=== PATIENT | female | born 1955 | race Caucasian/White ===

== ENCOUNTER 2018-08-21 11:04 | Outpatient (CLI) | payer OTHER ==
[~2018-08-21 11:04] MED LIST: CARB200T PO; METFORMIN
== END 2018-08-21 21:21 | disposition home or self-care (01) ==
LOC: SRD 11:04
PROVIDERS: ATTEND Family Medicine
DX: R05 Cough (principal); M47.814 Spondylosis without myelopathy or radiculopathy, thoracic region
CPT/HCPCS: 71046-TC

== ENCOUNTER 2019-04-30 12:45 | Outpatient (CLI) | payer OTHER | END 2019-04-30 20:57 | disposition home or self-care (01) | LOC: SMA 12:45 | PROVIDERS: ATTEND Family Medicine | DX: Z12.31 Encounter for screening mammogram for malignant neoplasm of breast (principal) | CPT/HCPCS: 77067 ==

== ENCOUNTER 2019-11-30 11:49 | Emergency (ER) | payer SELFPAY ==
[~2019-11-30] VITALS: Ht 152.4 cm; Wt 61.2 kg
[2019-11-30 11:59] VITALS: BP_SYST 147
--- NOTE | 2019-11-30 11:59 | NUR ---
Patient to ER bed 03 to gown for evaluation. Side rails up.
--- NOTE | 2019-11-30 12:00 | NUR ---
Pt brought by self, A&Ox4, pt presents to ER with R rib/ R flank pain, pt states she got dizzy and fell hitting a table with her back, pt BS 120, pt denies cough or fever, respirations even and unlabored, cap refill <3, VSS.
--- NOTE | 2019-11-30 12:10 | NUR ---
Dr Fitch at bedside examining patient
[2019-11-30] MEDS ORDERED: HYDROcodone/ACETAMIN 5-325 MG TAB (NORCO/ VICODIN) PO ONE (12:15)
[2019-11-30] MEDS ORDERED: traMADol HCL HCL 50 MG TABLET (ULTRAM) PO ONE (12:15)
--- NOTE | 2019-11-30 12:20 | NUR ---
Pt refused meds, stated she only feels pain when she moves and did not want meds right now. Dr Fitch informed of pt decision.
--- NOTE | 2019-11-30 12:40 | NUR ---
Patient transported to radiology via gurney, accompanied by abimael.
--- NOTE | 2019-11-30 13:24 | NUR ---
Pt resting in bed at this time no complaints
[2019-11-30 13:51] LABS: BASOPHILS % (AUTO) 0.3 % (0.0-2.0); EOSINOPHILS # (AUTO) 0.1 K/uL (0.0-0.4); EOSINOPHILS % (AUTO) 0.8 % (0.0-4.0); HEMATOCRIT 40.4 % (36-48); HEMOGLOBIN 13.4 g/dL (12.0-16.0); LYMPHOCYTES % (AUTO) 18.1 % (20.5-51.5); MEAN CORPUSCULAR HEMOGLOBIN 28 pg (27-31); MEAN CORPUSCULAR HGB CONC 33 % (32-36); MEAN CORPUSCULAR VOLUME 84 fL (79.0-98.0); MONOCYTES # (AUTO) 0.4 K/uL (0.0-1.0); MONOCYTES % (AUTO) 3.9 % (1.7-9.3); NEUTROPHILS # (AUTO) 8.4 K/uL (1.8-7.7); NEUTROPHILS % (AUTO) 76.9 % (40.0-70.0); PLATELET COUNT (AUTO) 278 K/uL (130-430); RED BLOOD CELL COUNT(AUTO) 4.84 MIL/uL (4.2-6.2); RED CELL DISTRIBUTION WIDTH 13.5 % (9.0-15.0)
[2019-11-30 13:58] LABS: CREATININE 0.62 mg/dL (0.55-1.30); POTASSIUM 4.6 mmol/L (3.5-5.1)
[2019-11-30 14:03] LABS: ALBUMIN 4.1 g/dL (3.4-4.8); TOTAL BILIRUBIN 0.4 mg/dL (0.0-1.0)
[2019-11-30 14:55] VITALS: BP_SYST 148
--- NOTE | 2019-11-30 15:00 | NUR ---
Patient given written and verbal discharge instructions and verbalizes understanding. ER MD discussed with patient the results and treatment provided. Patient in stable condition. ID arm band removed. Rx of [place] given. Patient educated on pain management and to follow up with PMD. Pain Scale 3/10 tolerable for patient . Opportunity for questions provided and answered. Medication side effect fact sheet provided.
== END 2019-11-30 14:55 | disposition home or self-care (01) ==
LOC: SED 11:49
DX: S22.31XA Fracture of one rib, right side, initial encounter for closed fracture (principal); R55 Syncope and collapse; I10 Essential (primary) hypertension; E11.9 Type 2 diabetes mellitus without complications; E78.00 Pure hypercholesterolemia, unspecified; Z85.820 Personal history of malignant melanoma of skin; X58.XXXA Exposure to other specified factors, initial encounter; Y93.89 Activity, other specified; Y92.89 Other specified places as the place of occurrence of the external cause; Y99.8 Other external cause status
CPT/HCPCS: 36415; 70450-TC; 71045; 71100; 80053; 82550-TC; 82962; 84484; 85025; 93005; 99285